=== PATIENT | male | born 1945 | race Caucasian/White ===

== ENCOUNTER → 2018-04-03 | Outpatient (CLI) | payer OTHER ==
--- NOTE | ~2018-04-03 | EKG ---
[address] [place] [address] ELECTROCARDIOGRAM REPORT Name: AMANDA BIGGS Room #: [facility] Jak#: [id number] Admission: 04/03/18 Attend Phys: Luz Smallwood MD Discharge: Date of : 43 Report #: [id number] THIS REPORT FOR: //name// [facility] Test Date: 2018-04-03 Test Time: 14:50:55 Pat Name: AMANDA BIGGS Department: Room: Gender: [employer]: Sarah BACA : 1945 Requested By: Luz Smallwood Order Number: [id number] MD: Esequiel Light Measurements Intervals [place] Rate: 70 P: 49 OR: 145 QRS: 77 QRSD: 99 T: 82 QT: 419 QTc: 453 Interpretive Statements Sinus rhythm ST elevation, consider early repolarization No previous ECG available for comparison Electronically Signed On 04-05-2018 9:22:45 SYSTEMS ENGINEER by Esequiel Light [email or web address] <ELECTRONICALLY SIGNED> By: Esequiel Light MD, [facility] 04/05/18 0922 1450 1450 Esequiel Light MD, FACC /EPI
== END ==
LOC: CV 14:18
DX: Z01.818 Encounter for other preprocedural examination (principal)